=== PATIENT | male | born 1955 | race Caucasian/White ===

== ENCOUNTER 2021-09-22 03:09 | Emergency (ER) | payer MEDICAID ==
[~2021-09-22] VITALS: Ht 180.3 cm; Wt 65.8 kg
--- NOTE | 2021-09-22 03:48 | NUR ---
COVID SWAB COLLECTED SENT TO LAB
--- NOTE | 2021-09-22 03:50 | NUR ---
PATIENT NOW STATING +SI HEARING VOICES, WANTING [facility] ADMIT.
--- NOTE | 2021-09-22 04:00 | NUR ---
PATIENT BIBSELF C/O + SI NO PLAN, WANTING PSYCH ADMIT. PATIENT IS A/O X 4, RR EVEN AND UNLABORED, NO SOB NOTED, VSS. PATIENT TAKEN TO ER BED 18. PATIENTS BELONGINGS COLLECTED AND PLACED IN LOCKER. PATIENT PLACED IN HOSPITAL GOWN. PATIENT SKIN INTACT, AMBULATES WITH STEADY GAIT. WILL CONTINUE TO MONITOR.
[2021-09-22 04:12] LABS: BILIRUBIN,URINE NEGATIVE (NEGATIVE); COLOR,URINE YELLOW (YELLOW); LEUKOCYTE ESTERASE ,URINE TRACE (NEGATIVE); NITRITE, URINE NEGATIVE (NEGATIVE); PROTEIN,URINE TRACE mg/dl (NEGATIVE); UGLUCOSE NEGATIVE (NEGATIVE); UROBILINOGEN,URINE 0.2 EU/dL (0.2)
[2021-09-22 04:47] LABS: BASOPHILS # (AUTO) 0.2 K/uL (0.0-0.2); EOSINOPHILS % (AUTO) 2.1 % (0.0-6.0); HEMATOCRIT 40 % (39-51); HEMOGLOBIN 13.5 g/dL (13.5-17.5); LYMPHOCYTES % (AUTO) 22.6 % (20.0-44.0); MEAN CORPUSCULAR HGB CONC 34 g/dl (31.0-36.0); MEAN CORPUSCULAR VOLUME 95 fL (80-96); MONOCYTES # (AUTO) 0.8 K/uL (0.1-1.30); MONOCYTES % (AUTO) 9.8 % (2.0-12.0); NEUTROPHILS # (AUTO) 5.5 K/uL (1.8-8.9); NEUTROPHILS % (AUTO) 63.5 % (43.0-81.0); PLATELET COUNT (AUTO) 562 K/uL (150-450); RED BLOOD CELL COUNT(AUTO) 4.19 MIL/uL (4.5-6.0); WHITE BLOOD COUNT (AUTO) 8.7 K/uL (4.3-11.0)
[2021-09-22 04:57] LABS: CALCIUM, SERUM 9.4 mg/dL (8.5-10.1); CREATININE 0.8 mg/dL (0.6-1.3); POTASSIUM 3.3 mmol/L (3.5-5.1)
[2021-09-22 05:02] LABS: ALBUMIN 4.3 g/dL (3.4-5.0); BILIRUBIN,DIRECT 0.1 mg/dL (0.0-0.2); BILIRUBIN,TOTAL 0.2 mg/dL (0.2-1.0); TOTAL PROTEIN, SERUM 8.7 g/dL (6.4-8.2)
--- NOTE | 2021-09-22 06:21 | NUR ---
FACESHEET AND CLINICALS FAXED TO [facility].
[2021-09-22 09:09] LABS: RBC,URINE 0-2 /HPF (0-2)
[2021-09-22 09:10] LABS: BACTERIA,URINE Rare /HPF (None Seen); SQUAMOUS EPITHELIAL CELL,UR 0-2 /HPF (None Seen)
--- NOTE | 2021-09-22 10:34 | NUR ---
SPOKE TO [place] FROM [facility] FOR TRANSPORT REQUEST FOR PT TO [facility]. GIVEN AN AMBULANCE ETA AT AROUND [phone].
--- NOTE | 2021-09-22 12:36 | NUR ---
REPORT GIVEN TO EMT FOR PT TRANSFER TO [facility].
[2021-09-22 12:37] VITALS: BP 125/71
== END 2021-09-22 12:38 ==
LOC: ER 03:15
DX: R45.851 Suicidal ideations (principal); F19.10 Other psychoactive substance abuse, uncomplicated; Z59.00 Homelessness unspecified; I10 Essential (primary) hypertension; Z20.822 Contact with and (suspected) exposure to COVID-19
CPT/HCPCS: 36415; 80048; 80076; 80143; 80307; 80320 ×2; 81001; 85025; 87426; 99285; C9803; G0480